=== PATIENT | female | born 1950 | race African-American/Black ===

== ENCOUNTER 2018-12-04 12:14 | Inpatient (IN) | payer MEDICARE, BC ==
[~2018-12-04] VITALS: Ht 170.2 cm; Wt 110.2 kg
[2018-12-04 12:30] VITALS: BP 177/86
[2018-12-04 14:00] VITALS: BP 163/77
[2018-12-04 15:20] LABS: CHLORIDE 107 mEq/L (98-107)
[2018-12-04 15:28] LABS: CREATINE KINASE 103 IU/L (26-192)
[2018-12-04 15:31] LABS: CREATINE KINASE MB FRACTION 1.2 ng/mL (0.5-3.6)
[2018-12-04 15:34] LABS: MEAN CORPUSCULAR HEMOGLOBIN 16.9 pg (28.0-32.0); MEAN CORPUSCULAR VOLUME 57.7 fL (81.0-99.0); MEAN PLATELET VOLUME 8.6 fl (7.4-10.4); PLATELET 390 x1000/uL (130-400); RED BLOOD CELL COUNT 3.71 mill/uL (4.2-5.4); RED CELL DISTRIBUTION WIDTH 19.9 % (11.6-14.6)
[2018-12-04 15:47] LABS: HEMATOCRIT. 21.4 % (36.0-48.0); HEMOGLOBIN. 6.3 g/dL (12.0-16.0)
[2018-12-04 16:00] VITALS: BP 166/83
[2018-12-04] MEDS ORDERED: CHOL100044 MT (16:11)
[2018-12-04] MEDS ORDERED: METF-416 MT (16:11)
[2018-12-04] MEDS ORDERED: NEBI5TAB3 MT (16:11)
[2018-12-04] MEDS ORDERED: AMLO5TAB88 MT (16:11)
[2018-12-04] MEDS ORDERED: LEVO125T8 MT (16:11)
[2018-12-04] MEDS ORDERED: TELM80TA8 MT (16:11)
[2018-12-04] MEDS ORDERED: FERR220S12 PO (16:11)
[2018-12-04] MEDS ORDERED: OMEP40CA34 MT (16:11)
[2018-12-04 16:27] LABS: TOTAL IRON BINDING CAPACITY 442 ug/dL (250-450)
[2018-12-04 16:54] LABS: PLATELET ESTIMATE NORMAL
[2018-12-04] MEDS: IRON SUCROSE COMPLEX 100 MG/5 ML ML IV SCH (17:29)
[2018-12-04] MEDS ORDERED: ONDANSETRON HCL 4MG/2ML INJ IV PRN (17:45)
[2018-12-04] MEDS ORDERED: MAGNESIUM/ALUMINUM HYDROXIDE/SIMETHICONE 30ML UDC PO PRN (17:45)
[2018-12-04] MEDS ORDERED: DOCUSATE SODIUM 100MG CAPSULE PO PRN (17:45)
[2018-12-04 18:00] VITALS: BP 171/81
[2018-12-04] MEDS: CLONIDINE 0.1MG TABLET PO PRN (18:49)
[2018-12-04] MEDS: HYDROCODONE/ACETAMINOPHEN 5/325MG TABLET PO PRN (18:50)
[2018-12-04] MEDS ORDERED: DEXTROSE 50% WATER 50ML SYRINGE IV PRN (19:15)
[2018-12-04 20:00] VITALS: BP 150/75
[2018-12-04] MEDS: LEVOTHYROXINE SODIUM 125MCG TABLET PO SCH (20:00)
[2018-12-04] MEDS: INSULIN LISPRO 100 UNITS/ML SUBCUT SCH (21:00)
[2018-12-04] MEDS: BLOOD SUGAR DIAGNOSTIC STRIP TEST SCH (21:13)
[2018-12-04] MEDS: GABAPENTIN 300MG CAPSULE PO SCH (21:17)
[2018-12-04] MEDS: ACETAMINOPHEN 325MG TABLET PO PRN (21:18)
[2018-12-04 22:00] VITALS: BP 116/57
[2018-12-04 22:57] LABS: HEMATOCRIT 20.7 % (36.0-48.0); HEMOGLOBIN 6.1 g/dL (12.0-16.0)
[2018-12-05] VITALS (12 sets, daily range): BP systolic 108–162; BP diastolic 55–104
[2018-12-05 06:56] LABS: MEAN CORPUSCULAR HEMOGLOBIN 17.1 pg (28.0-32.0); MEAN CORPUSCULAR VOLUME 58.2 fL (81.0-99.0); MEAN PLATELET VOLUME 8.5 fl (7.4-10.4); PLATELET 406 x1000/uL (130-400); RED BLOOD CELL COUNT 3.81 mill/uL (4.2-5.4); RED CELL DISTRIBUTION WIDTH 20.2 % (11.6-14.6)
[2018-12-05 07:09] LABS: CREATINE KINASE 86 IU/L (26-192)
[2018-12-05 07:11] LABS: CREATINE KINASE MB FRACTION < 1.0 ng/mL (0.5-3.6)
[2018-12-05] MEDS: BLOOD SUGAR DIAGNOSTIC STRIP TEST SCH ×4 (07:15→21:07)
[2018-12-05 07:17] LABS: CHLORIDE 108 mEq/L (98-107)
[2018-12-05] MEDS: INSULIN LISPRO 100 UNITS/ML SUBCUT SCH ×4 (07:20→21:00)
[2018-12-05 07:54] LABS: HEMOGLOBIN. 6.5 g/dL (12.0-16.0)
[2018-12-05 07:55] LABS: HEMATOCRIT. 22.1 % (36.0-48.0)
[2018-12-05] MEDS ORDERED: IOHEXOL-300 100 ML BOTTLE ONE (08:26)
[2018-12-05] MEDS: METFORMIN HCL 500MG TABLET PO SCH ×2 (08:52→16:22)
[2018-12-05] MEDS: NEBIVOLOL HCL 5 MG TABLET PO SCH ×2 (08:52→21:06)
[2018-12-05] MEDS: LEVOTHYROXINE SODIUM 125MCG TABLET PO SCH (08:52)
[2018-12-05] MEDS: AMLODIPINE 10MG TABLET PO SCH (08:53)
[2018-12-05] MEDS: GABAPENTIN 300MG CAPSULE PO SCH ×3 (08:53→21:07)
[2018-12-05] MEDS: CLONIDINE 0.1MG TABLET PO PRN (12:23)
[2018-12-05] MEDS: IRON SUCROSE COMPLEX 100 MG/5 ML ML IV SCH (16:23)
[2018-12-05] MEDS: ACETAMINOPHEN 325MG TABLET PO PRN (17:54)
[2018-12-06] VITALS (12 sets, daily range): BP systolic 100–137; BP diastolic 52–76
[2018-12-06 04:08] LABS: NUCLEATED RED BLOOD CELLS 2 /100 WBC
[2018-12-06 04:09] LABS: PLATELET ESTIMATE NORMAL
[2018-12-06] MEDS: LEVOTHYROXINE SODIUM 125MCG TABLET PO SCH (06:36)
[2018-12-06] MEDS: GABAPENTIN 300MG CAPSULE PO SCH ×3 (06:37→21:28)
[2018-12-06] MEDS: BLOOD SUGAR DIAGNOSTIC STRIP TEST SCH ×4 (06:56→21:00)
[2018-12-06] MEDS: INSULIN LISPRO 100 UNITS/ML SUBCUT SCH ×4 (07:20→21:00)
[2018-12-06 07:29] LABS: HEMATOCRIT 24.4 % (36.0-48.0); HEMOGLOBIN 7.1 g/dL (12.0-16.0); MEAN CORPUSCULAR VOLUME 58.3 fL (81.0-99.0); PLATELET 403 x1000/uL (130-400); RED BLOOD CELL COUNT 4.19 mill/uL (4.2-5.4); RED CELL DISTRIBUTION WIDTH 20.3 % (11.6-14.6)
[2018-12-06 07:40] LABS: CHLORIDE 106 mEq/L (98-107)
[2018-12-06] MEDS: AMLODIPINE 10MG TABLET PO SCH (08:11)
[2018-12-06] MEDS: METFORMIN HCL 500MG TABLET PO SCH ×2 (08:11→16:54)
[2018-12-06] MEDS: NEBIVOLOL HCL 5 MG TABLET PO SCH ×2 (08:11→21:27)
[2018-12-06] MEDS: IRON SUCROSE COMPLEX 100 MG/5 ML ML IV SCH (16:54)
[2018-12-06] MEDS: ACETAMINOPHEN 325MG TABLET PO PRN (17:10)
[2018-12-06] MEDS: HYDROCODONE/ACETAMINOPHEN 5/325MG TABLET PO PRN (21:28)
[2018-12-07] VITALS (12 sets, daily range): BP systolic 113–157; BP diastolic 52–104
[2018-12-07] MEDS: HYDROCODONE/ACETAMINOPHEN 5/325MG TABLET PO PRN ×2 (04:24→15:55)
[2018-12-07 06:28] LABS: HEMATOCRIT 22.9 % (36.0-48.0); MEAN CORPUSCULAR HEMOGLOBIN 17.6 pg (28.0-32.0); PLATELET 325 x1000/uL (130-400); RED BLOOD CELL COUNT 3.82 mill/uL (4.2-5.4); RED CELL DISTRIBUTION WIDTH 19.8 % (11.6-14.6)
[2018-12-07] MEDS: METFORMIN HCL 500MG TABLET PO SCH ×2 (06:43→16:57)
[2018-12-07] MEDS: INSULIN LISPRO 100 UNITS/ML SUBCUT SCH ×4 (06:43→23:02)
[2018-12-07] MEDS: LEVOTHYROXINE SODIUM 125MCG TABLET PO SCH (06:43)
[2018-12-07] MEDS: BLOOD SUGAR DIAGNOSTIC STRIP TEST SCH ×4 (06:43→23:02)
[2018-12-07] MEDS: GABAPENTIN 300MG CAPSULE PO SCH ×3 (06:43→22:24)
[2018-12-07 08:15] LABS: HEMOGLOBIN 6.7 g/dL (12.0-16.0)
[2018-12-07] MEDS: AMLODIPINE 10MG TABLET PO SCH (08:15)
[2018-12-07] MEDS: NEBIVOLOL HCL 5 MG TABLET PO SCH ×2 (08:15→21:28)
[2018-12-07] MEDS ORDERED: LOSARTAN POTASSIUM 25 MG TABLET PO SCH (11:30)
[2018-12-07] MEDS ORDERED: CLONIDINE 0.2MG TABLET PO PRN (11:30)
[2018-12-07] MEDS ORDERED: EPOETIN ALFA 4000UNITS/ML VIAL SUBCUT SCH ×2 (21:00)
[2018-12-08] VITALS (10 sets, daily range): BP systolic 121–172; BP diastolic 63–87
[2018-12-08] MEDS: HYDROCODONE/ACETAMINOPHEN 5/325MG TABLET PO PRN ×2 (00:31→06:47)
[2018-12-08] MEDS: LEVOTHYROXINE SODIUM 125MCG TABLET PO SCH (06:36)
[2018-12-08] MEDS: GABAPENTIN 300MG CAPSULE PO SCH ×2 (06:36→16:33)
[2018-12-08] MEDS: BLOOD SUGAR DIAGNOSTIC STRIP TEST SCH ×2 (06:41→11:50)
[2018-12-08] MEDS: CLONIDINE 0.1MG TABLET PO PRN (06:46)
[2018-12-08 06:59] LABS: HEMATOCRIT. 24.8 % (36.0-48.0); HEMOGLOBIN. 7.3 g/dL (12.0-16.0); MEAN CORPUSCULAR HEMOGLOBIN 18.3 pg (28.0-32.0); MEAN CORPUSCULAR VOLUME 61.8 fL (81.0-99.0); MEAN PLATELET VOLUME 8.6 fl (7.4-10.4); PLATELET 331 x1000/uL (130-400); RED CELL DISTRIBUTION WIDTH 20.3 % (11.6-14.6)
[2018-12-08] MEDS: INSULIN LISPRO 100 UNITS/ML SUBCUT SCH ×2 (07:20→12:20)
[2018-12-08 07:50] LABS: PLATELET ESTIMATE NORMAL
[2018-12-08] MEDS: NEBIVOLOL HCL 5 MG TABLET PO SCH (09:00)
[2018-12-08] MEDS ORDERED: LOSARTAN POTASSIUM 25 MG TABLET PO SCH (10:00)
[2018-12-08] MEDS: METFORMIN HCL 500MG TABLET PO SCH (11:52)
[2018-12-08] MEDS: AMLODIPINE 10MG TABLET PO SCH (11:53)
[2018-12-08] MEDS ORDERED: EPOETIN ALFA 4000UNITS/ML VIAL SUBCUT ONE (15:00)
[2018-12-08] MEDS ORDERED: LOSA25TA3 PO ×2 (16:53→16:56)
== END 2018-12-08 17:51 | disposition home or self-care (01) | DRG 812 ==
LOC: 3WST 12:14
PROVIDERS: ADMIT Specialist; ATTEND Specialist
DX: D50.9 Iron deficiency anemia, unspecified (principal); K21.9 Gastro-esophageal reflux disease without esophagitis; E11.40 Type 2 diabetes mellitus with diabetic neuropathy, unspecified; F50.89 Other specified eating disorder; E66.9 Obesity, unspecified; E78.00 Pure hypercholesterolemia, unspecified; D24.2 Benign neoplasm of left breast; I11.9 Hypertensive heart disease without heart failure; E89.0 Postprocedural hypothyroidism; J44.9 Chronic obstructive pulmonary disease, unspecified; K44.9 Diaphragmatic hernia without obstruction or gangrene; E04.1 Nontoxic single thyroid nodule; K64.9 Unspecified hemorrhoids; R94.31 Abnormal electrocardiogram [ECG] [EKG]; Z79.890 Hormone replacement therapy; Z80.1 Family history of malignant neoplasm of trachea, bronchus and lung; Z82.49 Family history of ischemic heart disease and other diseases of the circulatory system; Z83.49 Family history of other endocrine, nutritional and metabolic diseases; Z87.891 Personal history of nicotine dependence; Z68.38 Body mass index [BMI] 38.0-38.9, adult; Z79.84 Long term (current) use of oral hypoglycemic drugs; Z79.899 Other long term (current) drug therapy
CPT/HCPCS: 36415; 71045; 71260; 74177; 80048; 82270; 82550; 82553; 82728; 82962; 83540; 83550; 83735; 83880; 84443; 84484; 85014; 85018; 85027; 93005; 93970; J0885; J1815; Q9967